=== PATIENT | female | born 1945 ===

== ENCOUNTER 2018-01-25 07:15 | Day surgery (SDC) | payer MEDICARE, MEDICAID ==
[2018-01-25] MEDS ORDERED: Lactated Ringer's 500 ML IV ONE (07:43)
[2018-01-25] MEDS ORDERED: Propofol 10 mg/ml Inj (20 ML) ONE (07:50)
[2018-01-25 08:04] VITALS: O2SAT 100
[2018-01-25 09:11] VITALS: PULSE 58; RESP 18; TEMP 97.8
[2018-01-25 09:12] VITALS: BP 119/58
== END 2018-01-25 12:05 | disposition home or self-care (01) ==
LOC: H.ENDO 07:15
PROVIDERS: ATTEND Internal Medicine Gastroenterology
DX: K30 Functional dyspepsia (principal); R10.13 Epigastric pain; K20.9 Esophagitis, unspecified; K44.9 Diaphragmatic hernia without obstruction or gangrene; K29.50 Unspecified chronic gastritis without bleeding
CPT/HCPCS: 43239; 88305; J2001; J2704; J7120